=== PATIENT | male | born 1950 | race Caucasian/White ===

== ENCOUNTER 2019-03-26 09:07 | Day surgery (SDC) | payer OTHER ==
[2019-03-26] MEDS ORDERED: LIDOCAINE 4% SOLUTION 50 ML BTL (10:33)
[2019-03-26] MEDS ORDERED: FENTAnyl 50 MCG/ML VIAL (11:13)
[2019-03-26] MEDS ORDERED: MIDAZOLAM 1 MG/ML 2 ML INJ ×2 (11:13)
== END 2019-03-26 17:50 | disposition home or self-care (01) ==
LOC: GIL 09:07
DX: K20.8 Other esophagitis (principal)
CPT/HCPCS: 43239; 88305; 88312; 88313